=== PATIENT | female | born 1950 | race Caucasian/White ===

== ENCOUNTER 2019-09-07 11:10 | Emergency (ER) | payer MEDICARE, BC ==
[~2019-09-07] VITALS: Ht 172.7 cm; Wt 78.0 kg
[~2019-09-07 11:10] MED LIST: BEVA25VI IV; CALC500T31 PO; CARB15DR3 OU; DILT240C2 PO; GABA300C18 PO; LEVO100T5 PO; LEVO137T2 PO; MAGN400C PO; MAGN400T22 PO; PACL6VIA IV; POLY17PO29 PO; PRAV40TA2 PO; PROC5TAB34 PO; TRAM50TA PO; VALA10008 PO
[2019-09-07] MEDS ORDERED: IV NORMAL SALINE 1000ML BAG 1,000 ML IV SCH (12:27)
--- NOTE | 2019-09-07 12:43 | PHYS DOC ---
Past Medical History Past Medical History: Cancer, High Cholesterol, Hypothyroid Additional Past Medical Histor: neuropathy, tenitis, shingles Past Surgical History: Hysterectomy, Knee Replacement, Other Additional Past Surgical Histo: indwelling port Smoking Status: Never Smoker Alcohol Use: None Drug Use: None Adult General Chief Complaint Chief Complaint: DEHYDRATION HPI HPI Patient is a 69 year old female with history of dyslipidemia, hypothyroidism, stage IV metastatic ovarian cancer, recent C Diff infection who presents via EMS with complaint of dehydration. Patient states she has had diarrhea for the last 3 weeks and diagnosed with C. difficile about 2 weeks ago and treated with 10 days of oral vancomycin with the last dose 3 days ago but still has had diarrhea about 10 times a day with few episode of bowel incontinence. Patient with she had lower extremity edema for the last 2 weeks and her primary care physician recommended to decrease fluid intake but because of frequent episodes of diarrhea she thinks she is dehydrated. Patient denies chest pain, abdominal pain, dizziness, palpitation, chest pain and shortness of breath, fever and chills, nausea and vomiting. Patient states she has had a rash in the lower abdominal wall for the last 3 weeks and treated by her oncologist. Patient denies using antibiotic before starting C. difficile infection. Patient states she has had chronic vaginal mass with vaginal bleeding. Patient started palliative care and hospice today. Review of Systems Review of Systems Constitutional: Denies fever or chills [] Eyes: Denies change in visual acuity, redness, or eye pain [] HENT: Denies nasal congestion or sore throat [] Respiratory: Denies cough or shortness of breath [] Cardiovascular: No additional information not addressed in HPI [] GI: Denies abdominal pain, nausea, vomiting, bloody stools, reports diarrhea [] : Denies dysuria or hematuria [] Musculoskeletal: Denies back pain or joint pain [] Integument: Reports rash[] Neurologic: Denies headache, focal weakness or sensory changes [] Endocrine: Denies polyuria or polydipsia [] All other systems were reviewed and found to be within normal limits, except as documented in this note. Current Medications Current Medications Current Medications Medications (Trade) Dose Ordered Sig/Brandon Start Time Stop Time Status Last Admin Dose Admin Sodium Chloride 1,000 ml @ 1,000 mls/hr Q1H 09/07/19 12:27 09/07/19 13:26 DC 09/07/19 12:27 1,000 MLS/HR Allergies Allergies Allergies Coded Allergies Type Severity Reaction Last Updated Verified Latex, Natural Rubber Allergy Intermediate 12/06/15 Yes NSAIDS (Non-Steroidal Anti-Inflamma Allergy Intermediate 12/06/15 Yes Sulfa (Sulfonamide Antibiotics) Allergy Intermediate 12/06/15 Yes banana Allergy Mild Nausea-vomiting 12/03/15 Yes Physical Exam Physical Exam Constitutional: Well developed, mild distress, non-toxic appearance. [] HENT: Normocephalic, atraumatic. Eyes: PERRLA, EOMI, conjunctiva normal, no discharge. [] Neck: Normal range of motion, no tenderness, supple, no stridor. [] Cardiovascular:Heart rate regular rhythm, no murmur [] Lungs & Thorax: Bilateral breath sounds clear to auscultation [] Abdomen: Bowel sounds normal, soft, no tenderness, no masses, no pulsatile masses. [] Skin: Warm, dry, vesicular rash in lower abdomen and suprapubic area without sign of infection. Back: No tenderness, no CVA tenderness. [] Extremities: No tenderness, no cyanosis, no clubbing, ROM intact, bilateral lower extremity 2+ edema. [] Neurologic: Alert and oriented X 3, no focal deficits noted. [] Psychologic: Affect anxious, judgement normal, mood normal. [] Current Patient Data Vital Signs Vital Signs Date Time Temp Pulse Resp B/P (MAP) Pulse Ox O2 Delivery O2 Flow Rate FiO2 09/07/19 14:19 92 18 133/61 (85) 100 Room Air 09/07/19 11:41 98.2 98.2 Lab Values Laboratory Tests Test 09/07/19 13:07 09/07/19 13:30 White Blood Count 6.4 x10^3/uL (4.0-11.0) Red Blood Count 2.71 x10^6/uL (3.50-5.40) L Hemoglobin 7.7 g/dL (12.0-15.5) L Hematocrit 24.2 % (36.0-47.0) L Mean Corpuscular Volume 89 fL (79-100) Mean Corpuscular Hemoglobin 28 pg (25-35) Mean Corpuscular Hemoglobin Concent 32 g/dL (31-37) Red Cell Distribution Width 23.0 % (11.5-14.5) H Platelet Count 435 x10^3/uL (140-400) H Neutrophils (%) (Auto) 76 % (31-73) H Lymphocytes (%) (Auto) 9 % (24-48) L Monocytes (%) (Auto) 14 % (0-9) H Eosinophils (%) (Auto) 0 % (0-3) Basophils (%) (Auto) 1 % (0-3) Neutrophils # (Auto) 4.9 x10^3/uL (1.8-7.7) Lymphocytes # (Auto) 0.6 x10^3/uL (1.0-4.8) L Monocytes # (Auto) 0.9 x10^3/uL (0.0-1.1) Eosinophils # (Auto) 0.0 x10^3/uL (0.0-0.7) Basophils # (Auto) 0.0 x10^3/uL (0.0-0.2) Platelet Estimate Pending Prothrombin Time 16.3 SEC (11.7-14.0) H Prothrombin Time INR 1.3 (0.8-1.1) H Sodium Level 136 mmol/L (136-145) Potassium Level 3.5 mmol/L (3.5-5.1) Chloride Level 98 mmol/L (98-107) Carbon Dioxide Level 30 mmol/L (21-32) Anion Gap 8 (6-14) Blood Urea Nitrogen 18 mg/dL (7-20) Creatinine 0.8 mg/dL (0.6-1.0) Estimated GFR (Cockcroft-Gault) 71.1 BUN/Creatinine Ratio 23 (6-20) H Glucose Level 92 mg/dL (70-99) Calcium Level 8.5 mg/dL (8.5-10.1) Total Bilirubin 0.4 mg/dL (0.2-1.0) Aspartate Amino Transferase (AST) 19 U/L (15-37) Alanine Aminotransferase (ALT) 11 U/L (14-59) L Alkaline Phosphatase 81 U/L (46-116) UE-Svd-E-Type Natriuretic Peptide 968 pg/mL (0-124) H Total Protein 6.8 g/dL (6.4-8.2) Albumin 1.8 g/dL (3.4-5.0) L Albumin/Globulin Ratio 0.4 (1.0-1.7) L Lipase 28 U/L (73-393) L Urine Collection Type Unknown Urine Color Yellow Urine Clarity Clear Urine pH 7.5 Urine Specific Ber[place] 1.020 Urine Protein Negative mg/dL (NEG-TRACE) Urine Glucose (UA) Negative mg/dL (NEG) Urine Ketones (Stick) Negative mg/dL (NEG) Urine Blood Moderate (NEG) Urine Nitrite Negative (NEG) Urine Bilirubin Negative (NEG) Urine Urobilinogen Dipstick 0.2 mg/dL (0.2 mg/dL) Urine Leukocyte Esterase Small (NEG) Urine RBC >40 /HPF (0-2) Urine WBC 5-10 /HPF (0-4) Urine Squamous Epithelial Cells Few /LPF Urine Bacteria 0 /HPF (0-FEW) Urine Hyaline Casts Many /HPF Urine Mucus Marked /LPF Laboratory Tests 09/07/19 13:07 Laboratory Tests 09/07/19 13:07 EKG EKG [] Radiology/Procedures Radiology/Procedures [] Course & Med Decision Making Course & Med Decision Making Pertinent Labs and Imaging studies reviewed. (See chart for details) Evaluation of patient in ER showed 69-year-old female patient brought in by ambulance because of concern for dehydration after treatment of C. difficile infection. Patient had unremarkable labs except for chronic anemia without sign of dehydration or electrolyte problem. Patient had a sample of the stool before discharging home that was sent for CT for evaluation. Patient was informed about plan of care and is to follow-up with her primary care physician in follow-up with diarrhea diet. Dragon Disclaimer Dragon Disclaimer This electronic medical record was generated, in whole or in part, using a voice recognition dictation system. Departure Departure Impression: Primary Impression: Diarrhea Additional Impressions: History of Clostridioides difficile infection Chronic anemia Disposition: HOME, SELF-CARE (at 1449) Condition: IMPROVED Referrals: YOLANDA CHRISTIE MD (PCP) Patient Instructions: Diarrhea, Diet for Diarrhea, Adult Additional Instructions: Drink plenty of liquids Follow-up with your primary care physician in 2-3 days Return to ER if not getting better Thank you for visiting [facility]. We appreciate you trusting us with your care. If any additional problems come up don't hesitate to return to visit us. Please follow up with your primary care provider so they can plan additional care if needed and know about the problem that you had. If symptoms worsen come back to the Emergency Department. Any concerning symptoms that start such as chest pain, shortness of air, weakness or numbness on one side of the body, running high fevers or any other concerning symptoms return to the ER. Problem Qualifiers Primary Impression: Diarrhea Diarrhea type: unspecified type Qualified Codes: R19.7 - Diarrhea, unspecified BROOKLYNN FUNEZ MD Sep 07, 2019 12:43
[2019-09-07 13:20] LABS: BASO % 1 % (0-3); EOS % 0 % (0-3); HEMATOCRIT 24.2 % (36.0-47.0); HEMOGLOBIN 7.7 g/dL (12.0-15.5); LYMPH # 0.6 x10^3/uL (1.0-4.8); LYMPH % 9 % (24-48); MEAN CORPUSCULAR HEMOGLOBIN 28 pg (25-35); MEAN CORPUSCULAR HGB CONC 32 g/dL (31-37); MEAN CORPUSCULAR VOLUME 89 fL (79-100); MONO # 0.9 x10^3/uL (0.0-1.1); MONO % 14 % (0-9); NEUT # 4.9 x10^3/uL (1.8-7.7); NEUT % 76 % (31-73); PLATELET COUNT 435 x10^3/uL (140-400); RED BLOOD COUNT 2.71 x10^6/uL (3.50-5.40); WHITE BLOOD COUNT 6.4 x10^3/uL (4.0-11.0)
[2019-09-07 13:34] LABS: CALCIUM 8.5 mg/dL (8.5-10.1); CREATININE 0.8 mg/dL (0.6-1.0); GFR 71.1; POTASSIUM 3.5 mmol/L (3.5-5.1)
[2019-09-07 13:40] LABS: ALBUMIN 1.8 g/dL (3.4-5.0); ALBUMIN/GLOBULIN RATIO 0.4 (1.0-1.7); TOTAL BILIRUBIN 0.4 mg/dL (0.2-1.0); TOTAL PROTEIN 6.8 g/dL (6.4-8.2)
[2019-09-07 13:43] LABS: BILIRUBIN,URINE NEGATIVE (NEG); CLARITY,URINE CLEAR; COLOR,URINE YELLOW; NITRITE,URINE NEGATIVE (NEG); PH,URINE 7.5; PROTEIN,URINE NEGATIVE (NEG-TRACE); UROBILINOGEN,URINE 0.2 mg/dL (0.2 mg/dL)
[2019-09-07 13:46] LABS: PROTHROMBIN TIME PATIENT 16.3 SEC (11.7-14.0)
[2019-09-07 14:03] LABS: HYALINE CASTS, URINE MANY /HPF; SQUAMOUS EPITHELIAL CELL,UR FEW /LPF
[2019-09-07 14:04] LABS: BACTERIA,URINE 0 /HPF (0-FEW); RBC,URINE >40 /HPF (0-2)
[2019-09-07 14:48] VITALS: BP 129/63
[2019-09-07] MEDS ORDERED: HEPARIN PF 500 UNIT/5 ML DISP.SYRIN. IVP ONE (15:00)
[2019-09-07 15:35] LABS: PLT ESTIMATE INCREASED (ADEQUATE)
[2019-09-07 15:37] LABS: ANISOCYTOSIS MOD; HYPOCHROMIA MOD; STOMATOCYTES FEW
== END 2019-09-07 15:17 | disposition home or self-care (01) ==
LOC: ER 11:10
DX: R19.7 Diarrhea, unspecified (principal); D50.0 Iron deficiency anemia secondary to blood loss (chronic); E86.0 Dehydration; R60.0 Localized edema; R21 Rash and other nonspecific skin eruption; Z86.19 Personal history of other infectious and parasitic diseases; E78.00 Pure hypercholesterolemia, unspecified; E03.9 Hypothyroidism, unspecified; Z90.710 Acquired absence of both cervix and uterus; Z91.040 Latex allergy status; Z88.2 Allergy status to sulfonamides; Z88.6 Allergy status to analgesic agent; Z91.018 Allergy to other foods
CPT/HCPCS: 36415; 80053; 81001; 83690; 83880; 85025; 85610; 87086; 87186; 87493; 96361; 96374; 99285; J7030; 99284-25